=== PATIENT | female | born 1950 | race Two or more races ===

== ENCOUNTER 2017-03-09 10:50 | Outpatient (CLI) | payer MEDICAID, MEDICARE | END 2017-03-09 23:59 | disposition home or self-care (01) | LOC: WOU 10:50 | PROVIDERS: ATTEND Podiatrist Foot & Ankle Surgery | DX: L60.0 Ingrowing nail (principal); E11.42 Type 2 diabetes mellitus with diabetic polyneuropathy; B35.1 Tinea unguium; L85.3 Xerosis cutis; Z83.3 Family history of diabetes mellitus | CPT/HCPCS: 11730; 11732; A6402; J3490 ==

== ENCOUNTER 2017-03-23 09:15 | Outpatient (CLI) | payer MEDICARE | END 2017-03-23 23:59 | disposition home or self-care (01) | LOC: WOU 09:15 | PROVIDERS: ATTEND Specialist | DX: L60.0 Ingrowing nail (principal); E11.9 Type 2 diabetes mellitus without complications; Z86.31 Personal history of diabetic foot ulcer; I10 Essential (primary) hypertension; E78.5 Hyperlipidemia, unspecified | CPT/HCPCS: G0463 ==